=== PATIENT | female | born 1975 | race Caucasian/White ===

== ENCOUNTER 2016-08-02 11:03 | Day surgery (SDC) | payer BC ==
[~2016-08-02] VITALS: Ht 162.6 cm; Wt 89.5 kg
[~2016-08-02 11:03] MED LIST: LACTATED RINGERS 1,000 ML IV SCH; OXYMETAZOLINE 0.05% NASAL SPRAY (AFRIN) 15 ML BTL SCH; SODIUM CHLORIDE FLUSH 3 ML SYR IV SCH; SODIUM CHLORIDE FLUSH 3 ML SYR ONE
[2016-08-02 11:11] VITALS: BP 118/75
[2016-08-02] MEDS ORDERED: LIDOCAINE/EPINEPHRINE 1% 1:100,000 (XYLOCAINE) 30 ML VIAL INJ ONE (11:33)
[2016-08-02] MEDS ORDERED: OXYMETAZOLINE 0.05% NASAL SPRAY (AFRIN) 15 ML BTL ONE (11:33)
[2016-08-02] MEDS ORDERED: MUPIROCIN 2% OINT 22 GM (BACTROBAN) TUBE TOP ONE (11:33)
[2016-08-02] MEDS ORDERED: BACITRACIN/POLYMYXIN OINTMENT 1 PACKET TOP ONE (11:46)
[2016-08-02] MEDS ORDERED: ROCURONIUM 50 MG/5 ML (ZEMURON) VIAL IV ONE (12:15)
[2016-08-02] MEDS ORDERED: ONDANSETRON 2 MG/ML (Z0FRAN) 2 ML VIAL ONE (12:15)
[2016-08-02] MEDS ORDERED: ALFENTANIL 500 MCG/ML (ALFENTA) 5 ML AMP IV ONE (12:15)
[2016-08-02] MEDS ORDERED: PROPOFOL 20 ML IV ONE (12:15)
[2016-08-02] MEDS ORDERED: DEXAMETHASONE 10 MG/ML (DECADRON) VIAL ONE (13:14)
[2016-08-02] MEDS ORDERED: NEOSTIGMINE 1 MG/ML SYRINGE ONE (13:43)
[2016-08-02] MEDS ORDERED: GLYCOPYRROLATE 0.2 MG/ML (ROBINUL) 1 ML VIAL ONE (13:43)
[2016-08-02] MEDS ORDERED: ONDANSETRON 2 MG/ML (Z0FRAN) 2 ML VIAL IV PRN (13:50)
[2016-08-02 14:41] VITALS: BP 130/67
[2016-08-02 14:54] VITALS: BP 123/72
[2016-08-02 15:12] VITALS: BP 120/78
--- NOTE | 2016-08-02 15:15 | NUR ---
LISA ROGER [employer] H[employer] SUPERVISOR IN TO TALK TO PATIENT. PATIENT HAS NEVER HAD A SLEEP STUDY OR BEEN DIAGNOSED WITH SLEEP APNEA. O2 SAT 95-98% ON RA. PATIENT STATES SHE IS READY TO GO AND FEELS COMFORTABLE WITH GOING HOME AT THIS TIME.
[2016-08-02 15:24] VITALS: BP 132/82
[2016-08-02] MEDS ORDERED: HYPERTONIC SALINE IRRIGATION 1000 ML BTL IR SCH (21:00)
== END 2016-08-02 15:25 | disposition home or self-care (01) ==
LOC: ASC 11:03
PROVIDERS: ATTEND Otolaryngology
DX: J32.0 Chronic maxillary sinusitis (principal); J34.3 Hypertrophy of nasal turbinates; E03.9 Hypothyroidism, unspecified; F41.9 Anxiety disorder, unspecified; Z79.82 Long term (current) use of aspirin; Z87.891 Personal history of nicotine dependence
CPT/HCPCS: 30130; 31267; J1100; J2710; J3490; J7120